=== PATIENT | male | born 1985 | race African-American/Black ===

== ENCOUNTER 2021-01-05 13:43 | Emergency (ER) | payer OTHER ==
[~2021-01-05] VITALS: Ht 165.1 cm; Wt 66.7 kg
[2021-01-05 14:44] VITALS: BP 131/70
== END 2021-01-05 14:45 | disposition home or self-care (01) ==
LOC: M.ERS 13:43
DX: U07.1 COVID-19 (principal)

== ENCOUNTER 2021-01-09 23:16 | Emergency (ER) | payer OTHER ==
[~2021-01-09] VITALS: Ht 165.1 cm; Wt 61.2 kg
[2021-01-10 01:09] LABS: BE 2.9 mmol/L (-2 to +3); PO2 86.2 mmHg (75.0-100.0); pH 7.513 (7.340-7.450)
[2021-01-10 01:15] LABS: ABSOLUTE LYMPHOCYTES 1.2 thou/uL (0.8-5.3); ABSOLUTE MONOCYTES 0.3 thou/uL (0.0-1.2); ABSOLUTE NEUTROPHILS 3.1 thou/uL (1.6-8.1); BASOPHILS 0.7 %; EOSINOPHILS 0.2 %; HEMATOCRIT 44.5 % (42.0-52.0); HEMOGLOBIN 15.4 gm/dL (14.0-18.0); LYMPHOCYTES 25.3 %; MCH 31.7 pg (26.0-34.0); MCHC 34.6 g/dL (28.0-37.0); MCV 91.6 fL (80.0-100.0); MONOCYTES 7.1 %; MPV 9.8 fl. (7.2-11.1); NUCLEATED RBCS 0 /100WBC; PLATELET COUNT* 104 thou/uL (150-400); POLYS 66.7 %; RBC 4.86 mil/uL (4.50-6.00); RDW-CV 12.3 % (10.5-14.5); WBC 4.6 thou/uL (4.0-11.0)
[2021-01-10 01:20] LABS: CALCIUM 8.4 mg/dL (8.5-10.1); CREATININE 1.2 mg/dL (0.6-1.3); POTASSIUM 3.2 mmol/L (3.5-5.1)
[2021-01-10 01:25] LABS: MAGNESIUM 1.9 mg/dL (1.8-2.4); TOTAL BILIRUBIN 1.1 mg/dL (<0.1-1.0); TOTAL PROTEIN 7.5 g/dL (6.4-8.2)
[2021-01-10] MEDS ORDERED: ACETAMINOPHEN-1 EAC2 PO (04:17)
[2021-01-10] MEDS ORDERED: ZOFRAN ODT4 MG PO (04:17)
[2021-01-10] MEDS ORDERED: IBUPROFEN 800800 MG PO (04:19)
[2021-01-10 04:35] VITALS: BP 136/84
== END 2021-01-10 04:35 | disposition home or self-care (01) ==
LOC: M.ERS 23:16
PROVIDERS: Personal Emergency Response Attendant
DX: U07.1 COVID-19 (principal); E86.0 Dehydration